=== PATIENT | female | born 1960 | race Caucasian/White ===

== ENCOUNTER 2021-01-29 05:37 | Emergency (ER) | payer OTHER, SELFPAY ==
[2021-01-29 05:37] VITALS: BP 125/46; PULSE 79; RESP 16; TEMP 38.2; O2SAT 95; BMI 29.6
[2021-01-29] MEDS: Acetaminophen 500 MG Tablet 1000 MG PO (06:09)
[2021-01-29] MEDS: Ketorolac 30 MG/ML Syringe IM (06:09)
--- NOTE | 2021-01-29 06:11 | EX.ED.DYSGE1 ---
HPI History of Present Illness Chief Complaint: Cold Sx Informant: patient Onset/Context/Timing Onset: Days (11) Context: Gradual Onset Timing: Continuous Quality: fatigue Location: all over Current Severity: Severe Maximum Severity: Severe Worsened by: n/a Relieved by: n/a Associated Symptoms Associated Symptoms: fevers, chills, myalgias, headaches, cough, sinus pain Narrative Narrative: Patient was diagnosed with Covid 11 days ago, her subsequently got it, and they both present for evaluation because they both feel miserable. Other than severe fatigue her main complaint is sinus pain and congestion which started her symptoms, and she was initially treated with IV antibiotics at a hospital along with a prescription for a Z-Edgard, none of which seem to help. She takes medication for blood pressure. She was tested at outside hospital, [facility]. She really has not had dyspnea. No chest discomfort. Just feeling very fatigued, malaise, and achy. She did not get vaccinated. [facility] Medical History Depression Hypertension Home Medications cetirizine 10 mg PO DAILY 01/29/21 [History Last Taken Unknown] lisinopril 40 mg PO DAILY 01/29/21 [History Last Taken Unknown] sertraline 50 mg PO DAILY 01/29/21 [History Last Taken Unknown] Allergy/AdvReac Type Severity Reaction Status Date / Time cephalexin [From Keflex] AdvReac Other Verified 02/24/16 14:06 Surgical History (Updated 01/29/21 @ 05:44 by Nara Arredondo) History of appendectomy Social History Smoking Status: Former smoker ROS ROS ED Constitutional Constitutional ED: Reports as per HPI, body ache(s), chills, fatigue and fever(s) Eyes Eyes: Denies change in vision or diplopia ENT ENT ED: Denies rhinorrhea or sore throat Cardiovascular Cardiovascular: Denies chest pain or palpitations Respiratory/Chest Respiratory/Chest: Reports cough; Denies dyspnea Gastrointestinal Gastrointestinal: Denies abdominal pain, diarrhea, nausea or vomiting Genitourinary Genitourinary ED: Denies dysuria or hematuria Musculoskeletal Musculoskeletal: Denies back pain or neck pain Integumentary Denies abscess or rash Neurologic Neurologic: Reports headache(s); Denies paresthesias or weakness Psychiatric Psychiatric: Denies anxiety or suicidal thoughts EXAM Physical Exam Const Vital Signs: 01/29/21 05:37 Temperature 100.8 F H Temperature Source Oral Pulse Rate 79 Respiratory Rate 16 Blood Pressure 125/46 H Blood Pressure Mean 72 Pulse Ox 95 Oxygen Delivery Method Room Air Positive well nourished and well developed General Appearance ED: well developed and NAD HEENT Reports moist mucous membranes normocephalic and atraumatic Eyes PERRL and EOMs intact bilaterally Neck full ROM and supple Resp normal respiratory effort and clear to auscultation bilaterally Cardio regular rate, regular rhythm and no murmurs Rate: Negative for tachycardic GI non-tender and non-distended Auscultation: normoactive bowel sounds Palpation: soft Back/Spine no CVA tenderness General Back: other FROM Extremity normal to inspection General Extremety ED: Negative for edema, pulses abnormal or tenderness General Extremity: Negative for edema or pulses abnormal Neuro oriented x3, CN's II-XII intact bilaterally, no sensory deficits noted and gait normal Sensorium / Orientation: awake and alert Motor Exam: strength 5/5 throughout Skin no rashes or lesions noted and no wounds MDM MDM MDM Narrative Medical decision making narrative: Patient wants me to check for dehydration. She states she has been drinking fluids. We had her provide a urine specimen for urinalysis. It shows a specific gravity of 1.010 and is otherwise unremarkable, certainly inconsistent with dehydration. Also offered her an injection of Toradol for aches and pains and headaches which she accepted. Her oxygenation is excellent, she did not go below 95% during my evaluation. She has not been dyspneic, and unfortunately is no longer a candidate for monoclonal antibody infusion since she has had symptoms for more than 10 days. At this time after giving her Tylenol for fevers as well, I reassured her that she is oxygenating well, and stable for discharge home, I recommend symptomatic treatment. I recommend that she get nasal or oral decongestant for her sinus symptoms. Also I recommend getting a home pulse oximeter to keep an eye on her oxygenation, and we discussed reasons to return. Lab Data Attestation: I reviewed the patient's lab results. Labs: Laboratory Results - last 24 hr 01/29/21 06:30 Urine Color Yellow Urine Clarity Clear Urine pH 7.0 Ur Specific [place] 1.010 Urine Protein 30 H Urine Glucose (UA) Normal Urine Ketones Negative Urine Occult Blood 25 H Urine Nitrite Negative Urine Bilirubin Negative Urine Urobilinogen 1 H Ur Leukocyte Esterase Negative Urine RBC 0-5 SEEN Urine WBC 0 SEEN Ur Squamous Epith Cells 0 SEEN Urine Bacteria 0 SEEN Urine Mucus 0 SEEN Discharge Plan Triage Chief Complaint: Cold Sx ED Provider: Aba Jarrell Dx/Rx/DC Orders Clinical Impression: COVID-19 Instructions: Coronavirus Disease 2019 (COVID-19): Caring for Yourself or Others, Self-Care for Sinusitis Prescriptions: No Action cetirizine 10 mg tablet 10 mg PO DAILY RF: 0 lisinopril 20 mg tablet 40 mg PO DAILY RF: 0 sertraline 50 mg tablet 50 mg PO DAILY RF: 0 Primary Care Provider: Care Physician,No Primary Referrals: Alessandra Blue MD [STAFF PHYSICIAN] - As Needed Activity Restrictions/Additional Instructions: Get a pulse oximeter to watch her oxygen levels at home. If she stable 90%, regardless of symptoms, you need to be reevaluated. If you are getting very short of breath and want to be reevaluated for that despite oxygen levels, you are welcome to return to the ER. Disposition Disposition: Home, Self Care
[2021-01-29 06:36] LABS: Bacteria 0 SEEN /hpf (None Seen); Mucous, Urine 0 SEEN /hpf (<or=2+); Squamous Epithelial Cells - UA 0 SEEN /hpf (5-10); White Blood Cells 0 SEEN /hpf (0-5)
[2021-01-29 06:37] LABS: Color, Urine Yellow (Yellow); Glucose, Dipstick Normal (Normal); Ketone-Dipstick Negative (Negative); Leukocyte Esterase-Dipstick Negative /ul (Negative); Nitrite-Dipstick Negative (Negative); Occult Blood-Urine 25 /ul (Negative); Protein-Dipstick 30 mg/dl (Negative); Urine Bilirubin Dipstick Negative (Negative); Urine Clarity Clear (Clear); Urine Urobilinogen 1 mg/dl (Normal)
[2021-01-29 06:45] LABS: Red Blood Cells-Urine 0-5 SEEN /hpf (0-5)
[2021-01-29 07:13] VITALS: BP 111/45; PULSE 74; RESP 16; O2SAT 98
== END 2021-01-29 07:13 | disposition home or self-care (01) ==
LOC: ED 06:34
PROVIDERS: Emergency Provider Emergency Medicine
DX: U07.1 COVID-19 (principal); I10 Essential (primary) hypertension; F32.9 Major depressive disorder, single episode, unspecified; Z79.899 Other long term (current) drug therapy
CPT/HCPCS: 81001; 96372; 99283